=== PATIENT | female | born 1945 | race Caucasian/White ===

== ENCOUNTER 2024-10-22 10:03 | Outpatient (CLI) | payer MEDICARE | END 2024-10-22 23:59 | disposition home or self-care (01) | LOC: RAD 10:03 | PROVIDERS: ATTEND Physician Assistant Medical | DX: R13.12 Dysphagia, oropharyngeal phase (principal); Z46.59 Encounter for fitting and adjustment of other gastrointestinal appliance and device; Z79.82 Long term (current) use of aspirin; Z85.810 Personal history of malignant neoplasm of tongue | CPT/HCPCS: 74230 ==